=== PATIENT | female | born 1995 | race Two or more races ===

== ENCOUNTER 2024-12-04 17:08 | Emergency (ER) | payer OTHER ==
[~2024-12-04] VITALS: Ht 165.1 cm; Wt 77.1 kg
[2024-12-04] MEDS ORDERED: DIPHENHYDRAMINE HCL 50 MG/ML VIAL 1ML IM ONE (20:15)
[2024-12-04] MEDS ORDERED: DIPHENHYDRAMINE HCL 50 MG/ML VIAL 1ML ONE (20:28)
[2024-12-04 20:35] LABS: BASO % 0.5 % (0.1-1.2); EOS # 0.27 (0.04-0.54); EOS % 3.3 % (0.7-7.0); LYMPH # 2.71 (1.18-3.74); LYMPH % 33.1 % (19.3-53.1); MEAN PLATELET VOLUME 10.30 fl (9.4-12.4); MONO # 0.45 (0.24-0.82); MONO % 5.5 % (4.7-12.5); NEUT # 4.69 (1.56-6.13); NEUT % 57.4 % (34.0-71.1); RED CELL DISTRIBUTION WIDTH 12.7 % (11.6-14.4)
[2024-12-04 21:24] LABS: ERYTHROCYTE SEDIMENTATION RATE 20 mm/hr (0-20)
[2024-12-04 21:27] LABS: COVID-19 AG NEGATIVE (NEGATIVE)
[2024-12-04 21:36] LABS: ALT/SGPT 15.0 U/L (12-78); AST/SGOT 10.0 U/L (15-37); BILIRUBIN TOTAL 0.2 mg/dL (0.3-1.2); BUN CREA RATIO 10.0 (7.0-25.0); CREATININE SERUM 0.94 mg/dL (0.55-1.02); GFR 70.9; GLOBULINA 3.9 G/DL (2.4-3.5); GLUCOSE FASTING 93.0 mg/dL (65-100); OSMOLALITY SERUM 280.0 MOSM/KG (275-295)
== END 2024-12-04 22:19 | disposition home or self-care (01) ==
LOC: ER 17:08
PROVIDERS: General Practice
DX: O99.711 Diseases of the skin and subcutaneous tissue complicating pregnancy, first trimester (principal); Z3A.01 Less than 8 weeks gestation of pregnancy; L30.5 Pityriasis alba; Z20.822 Contact with and (suspected) exposure to COVID-19

== ENCOUNTER → 2025-02-04 09:10 | Outpatient (CLI) | payer OTHER | END | disposition home or self-care (01) | LOC: PRENATAL 09:10 | PROVIDERS: ATTEND Obstetrics & Gynecology Maternal & Fetal Medicine | DX: O36.80X0 Pregnancy with inconclusive fetal viability, not applicable or unspecified (principal); Z36.82 Encounter for antenatal screening for nuchal translucency; Z14.8 Genetic carrier of other disease; Z3A.13 13 weeks gestation of pregnancy ==

== ENCOUNTER 2025-02-19 11:55 | Outpatient (CLI) | payer OTHER | END 2025-02-19 11:56 | disposition home or self-care (01) | LOC: PRENATAL 11:55 → LAB 16:32 | PROVIDERS: ATTEND Obstetrics & Gynecology Maternal & Fetal Medicine | DX: O26.841 Uterine size-date discrepancy, first trimester (principal); O28.1 Abnormal biochemical finding on antenatal screening of mother; O28.3 Abnormal ultrasonic finding on antenatal screening of mother; O36.4XX0 Maternal care for intrauterine death, not applicable or unspecified ==

== ENCOUNTER 2025-02-22 07:23 | Inpatient (IN) | payer OTHER ==
[2025-02-22] VITALS (8 sets, daily range): BP systolic 98–109; BP diastolic 57–65
[~2025-02-22] VITALS: Ht 167.6 cm; Wt 85.7 kg
[2025-02-22] MEDS ORDERED: MISOPROSTOL 100 MCG TABLET ONE (08:35)
[2025-02-22] MEDS ORDERED: MISOPROSTOL 100 MCG TABLET VAG ONE (09:00)
[2025-02-22] MEDS ORDERED: MISOPROSTOL 100 MCG TABLET PO SCH (09:00)
[2025-02-22] MEDS ORDERED: RINGERS SOLUTION,LACTATED 1,000 ML IV SCH (09:00)
[2025-02-22] MEDS ORDERED: MORPHINE SULFATE 4 MG/ML VIAL IV PRN (09:15)
[2025-02-22 09:18] LABS: BASO % 0.2 % (0.1-1.2); EOS # 0.16 (0.04-0.54); EOS % 1.8 % (0.7-7.0); LYMPH # 2.24 (1.18-3.74); LYMPH % 25.7 % (19.3-53.1); MEAN PLATELET VOLUME 11.40 fl (9.4-12.4); MONO # 0.42 (0.24-0.82); MONO % 4.8 % (4.7-12.5); NEUT # 5.82 (1.56-6.13); NEUT % 66.7 % (34.0-71.1); RED CELL DISTRIBUTION WIDTH 13.2 % (11.6-14.4)
[2025-02-22 09:24] LABS: URINE APPEARANCE Clear; URINE BILIRRUBIN Negative (NEGATIVE); URINE BLOOD Negative; URINE COLOR Yellow; URINE GLUCOSE Negative (NEGATIVE); URINE KETONE Negative (NEGATIVE); URINE LEUKOCYTE Negative; URINE NITRATE Negative; URINE PROTEIN Negative (NEGATIVE); URINE UROBILINOGEN 0.2 E.U./dl
[2025-02-22 09:27] LABS: URINE BACTERIA 60.5 uL (0.0-1933); URINE EPITHELIAL CELLS 3.5 uL (0.0-38.8); URINE WBC 2.5 uL (0.0-23.2)
[2025-02-22] MEDS ORDERED: FOLIC ACID0.8 M1 (09:30)
[2025-02-22] MEDS ORDERED: PRENATA CHEWAB1 EACH PO (09:30)
[2025-02-22 09:39] LABS: INR 0.94
[2025-02-22 10:03] LABS: URINE CAST 0.00 uL (0.0-1.40); URINE RBC 0.4 uL (0.0-20.8)
[2025-02-22] MEDS ORDERED: CHLORHEXIDINE GLUCONATE 120 ML BOTTLE TOP ONE ×2 (14:08→14:30)
[2025-02-22] MEDS ORDERED: OXYTOCIN 20 UNITS/1000ML RL PIGGYBAG IV ONE ×2 (15:40→17:30)
[2025-02-22] MEDS ORDERED: OXYTOCIN 1,000 ML IV SCH (18:00)
[2025-02-23] VITALS: BP 95/61
[2025-02-23 07:58] LABS: BASO % 0.2 % (0.1-1.2); EOS # 0.23 (0.04-0.54); EOS % 2.7 % (0.7-7.0); LYMPH # 2.25 (1.18-3.74); LYMPH % 26.4 % (19.3-53.1); MEAN PLATELET VOLUME 11.50 fl (9.4-12.4); MONO # 0.39 (0.24-0.82); MONO % 4.6 % (4.7-12.5); NEUT # 5.56 (1.56-6.13); NEUT % 65.4 % (34.0-71.1); RED CELL DISTRIBUTION WIDTH 13.1 % (11.6-14.4)
[2025-02-23 08:16] VITALS: BP 95/60
[2025-02-23] MEDS ORDERED: PNV,CALCIUM 72/IRON/FOLIC ACID 1 TAB TABLET PO SCH (09:00)
== END 2025-02-23 11:06 | disposition home or self-care (01) | DRG 807 ==
LOC: OB/GYN 07:23 → LDR 07:23 → OB/GYN 16:47
PROVIDERS: ADMIT Obstetrics & Gynecology; ATTEND Obstetrics & Gynecology
PROC: 10E0XZZ Delivery of Products of Conception, External Approach (ICD-10-PCS; principal; 2025-02-22)
PROC: 3E033VJ Introduction of Other Hormone into Peripheral Vein, Percutaneous Approach (ICD-10-PCS; 2025-02-22)
PROC: 3E0P7VZ Introduction of Hormone into Female Reproductive, Via Natural or Artificial Opening (ICD-10-PCS; 2025-02-22)
PROC: 3E0DXGC Introduction of Other Therapeutic Substance into Mouth and Pharynx, External Approach (ICD-10-PCS; 2025-02-22)
PROC: 4A1HXCZ Monitoring of Products of Conception, Cardiac Rate, External Approach (ICD-10-PCS; 2025-02-22)
DX: O02.1 Missed abortion (principal); Z37.1 Single stillbirth; O35.2XX0 Maternal care for (suspected) hereditary disease in fetus, not applicable or unspecified; Z3A.16 16 weeks gestation of pregnancy